=== PATIENT | female | born 1990 | race Caucasian/White ===

== ENCOUNTER → 2017-11-09 15:38 | Outpatient (CLI) | payer OTHER, SELFPAY ==
[2017-11-09 17:52] LABS: HCG,Quantitative 1846 mIU/mL
== END ==
PROVIDERS: PCP Nurse Practitioner Obstetrics & Gynecology; Visit Provider Nurse Practitioner Obstetrics & Gynecology
DX: Z32.00 Encounter for pregnancy test, result unknown (principal)
CPT/HCPCS: 36415; 84702

== ENCOUNTER → 2017-11-14 13:30 | Outpatient (CLI) | payer OTHER, SELFPAY ==
[2017-11-14 14:26] LABS: Basophils % 0.5 % (0.1-2.0); Eosinophils # 0.1 K/mm3 (0.0-0.4); Eosinophils % 0.7 % (0.1-12.0); Hematocrit 42.7 % (37.0-47.0); Hemoglobin 14.4 g/dL (12.2-16.2); Lymphocytes # 2.5 K/mm3 (0.7-4.5); Lymphocytes % 29.5 K/mm3 (10-50); Mean Corpuscular HGB Conc 33.7 g/dL (31.8-35.4); Mean Corpuscular Hemoglobin 31.5 pg (27.0-31.2); Mean Corpuscular Volume 93.6 fl (81-99); Mean Platelet Volume 8.1 fl (7.4-10.4); Monocytes # 0.3 K/mm3 (0.1-1.0); Monocytes % 3.6 % (1.7-9.3); Neutrophils # 5.6 K/mm3 (1.8-7.8); Neutrophils % 65.7 % (37.0-80.0); Platelet Count 222 K/mm3 (142-424); Red Blood Count 4.56 M/mm3 (4.20-5.40); Red Cell Distribution Width 11.7 % (11.5-17.5); White Blood Count 8.5 K/mm3 (4.8-10.8)
[2017-11-16 16:51] LABS: HIV Screen 4th Generation wRfx Non Reactive (Non Reactive); Hepatitis B Surface Antigen Negative (Negative); Rapid Plasma Reagin Ab Titer Non Reactive (NonRea<1:1); Rubella Antibodies, IgG 1.47 index (Immune >0.99)
[2017-11-16 16:52] LABS: Hepatitis C Antibody <0.1 s/co ratio (0.0-0.9)
== END ==
PROVIDERS: PCP Nurse Practitioner Obstetrics & Gynecology; Visit Provider Nurse Practitioner Obstetrics & Gynecology
DX: Z34.90 Encounter for supervision of normal pregnancy, unspecified, unspecified trimester (principal)
CPT/HCPCS: 36415; 85025; 86592; 86703; 86762; 86850; 87340; 87380; G0432

== ENCOUNTER → 2017-11-23 08:51 | Outpatient (CLI) | payer OTHER, SELFPAY ==
--- NOTE | 2017-11-23 08:54 | US_ITS ---
US OB transvaginal HISTORY: ITS.REASON: US OB Dates ORDERING PHYSICIAN: Mickey Barragan MD PATIENT AGE: 27 years COMPARISON: None FINDINGS: An intrauterine gestational sac is present with a pole with a crown-rump length of 0.76cm correlating to gestational age of 7w0d. heart tones are present with an FHR of 154 bpm's. Yolk sac is noted. . Adnexa: 1.5 cm right corpus luteum cyst. IMPRESSION: Live intrauterine gestation at 7 weeks 0 days as described above. Estimated due date by Ultrasound is 07/12/2018
== END ==
PROVIDERS: PCP Nurse Practitioner Obstetrics & Gynecology; Visit Provider Nurse Practitioner Obstetrics & Gynecology
DX: O26.841 Uterine size-date discrepancy, first trimester (principal)
CPT/HCPCS: 76817

== ENCOUNTER → 2018-02-27 08:24 | Outpatient (CLI) | payer OTHER, SELFPAY ==
--- NOTE | 2018-02-27 08:26 | US_ITS ---
US OB /maternal detail: INDICATION: ITS.REASON: US OB Complete ORDERING PHYSICIAN: Mickey Barragan MD PATIENT AGE: 28 years TECHNIQUE: ultrasound transabdominal scanning. COMPARISON: No previous relevant studies. FINDINGS: Single viable intrauterine gestation. Cephalic position. Placenta: Posterior placenta grade 1. There is average amount fluid. The cervix appears satisfactory. Closed and measuring 3.5 cm in length. Complete survey performed and was unremarkable on the submitted images as in PACS. No discrete anomalies identified on survey imaging by technologist. Active fetus. Three-vessel cord with satisfactory umbilical cord insertion. 4- chamber heart noted. Survey of brain & ventricles unremarkable. Face and neck survey unremarkable. Diaphragm and chest views unremarkable. Abdomen: Both kidneys noted and unremarkable. Stomach noted and satisfactory. Spine: Survey of the spine satisfactory with no anomalies identified nor imaged. Both arms and legs noted. Amniotic Fluid: Adequate. Maternal adnexa: No significant findings. Measurements: Average ultrasound age 20w2d. Gestational Age 20w5d. Estimated due date by ultrasound age 0507/15/2018. Estimated weight 349 grams. BPD = 20w2d OFD = 20w4d HC = 19w5d AC = 20w4d FL = 20w3d Growth Percentile= 28% Heart Rate = 152 Cerebellum = 20w6d Humerus = 21w1d1.11 (1,09-1.26) HC/AC is (1.09-1.26). CI is 78%(70-86%). FL/BPD is 71%. FL/AC is 22%. IMPRESSION: There is a single live fetus which is in cephalic presentation. Average ultrasound age is 20 weeks and 2 days. Fetus is active with no obvious anomalies. All parameters correlate. Posterior grade 1 placenta. Please see above for detailed description
== END ==
PROVIDERS: PCP Nurse Practitioner Obstetrics & Gynecology; Visit Provider Nurse Practitioner Obstetrics & Gynecology
DX: Z36.0 Encounter for antenatal screening for chromosomal anomalies (principal)
CPT/HCPCS: 76811

== ENCOUNTER → 2018-04-10 09:23 | Outpatient (CLI) | payer OTHER, SELFPAY ==
[2018-04-10 09:52] LABS: Glucose,Fasting 80 mg/dL (60-105)
[2018-04-10 11:13] LABS: Glucose 1 Hour 106 mg/dL (74-106)
== END ==
PROVIDERS: Visit Provider Nurse Practitioner Obstetrics & Gynecology
DX: Z34.90 Encounter for supervision of normal pregnancy, unspecified, unspecified trimester (principal)
CPT/HCPCS: 36415; 82951

== ENCOUNTER → 2018-06-13 09:56 | Outpatient (CLI) | payer OTHER, SELFPAY ==
--- NOTE | 2018-06-13 09:57 | US_ITS ---
US OB BPP w/Fet-Mat S/D: Indication: ITS.REASON: US OB- BPP Growth- LGA ORDERING PHYSICIAN: Mickey Barragan MD PATIENT AGE: 28 years FINDINGS: The following parameters are obtained: Average ultrasound age is 35w5d. Estimated due date by ultrasound is 07/13/2018. Estimated weight is 2858 grams, 69th percentile BPD: 34w5d OFD: 37w6d HC: 35w3d AC: 37w0d FL: 35w5d heart rate: 138 bpm. HC/AC: 0.96 (0.93-1.11) Cephalic index: 76% (70-86%) FL/BPD: 81% (71-87%) FL/AC: 21% (20-24%) Amniotic fluid index: 11 cm Qualitative AFV: 2 breathing movements: 2 Gross body movements: 2 Tone: 2 Biophysical profile score: 8/8 Doppler evaluation of the umbilical artery: SD ratio: 2.4 Resistive index: 0.58 No obvious anomalies evident. Placenta: Posterior and grade 2 Cervix: Appears closed and measures 3 cm IMPRESSION: There is a live intrauterine gestation with an average ultrasound age of 35 weeks and 5 days. Estimated weight is 2858 g which is 69th percentile. Placenta is posterior and grade 2 Biophysical profile is 8 of 8 Unremarkable umbilical artery evaluation
== END ==
PROVIDERS: PCP Nurse Practitioner Obstetrics & Gynecology; Visit Provider Nurse Practitioner Obstetrics & Gynecology
DX: O36.60X0 Maternal care for excessive fetal growth, unspecified trimester, not applicable or unspecified (principal)
CPT/HCPCS: 76819

== ENCOUNTER → 2018-06-15 16:49 | Outpatient (CLI) | payer OTHER, SELFPAY | PROVIDERS: Visit Provider Nurse Practitioner Obstetrics & Gynecology | DX: Z34.90 Encounter for supervision of normal pregnancy, unspecified, unspecified trimester (principal) | CPT/HCPCS: 86403 ==

== ENCOUNTER 2018-06-29 09:16 | Outpatient (CLI) | payer OTHER, SELFPAY ==
[2018-06-29 09:31] VITALS: BP 136/86; RESP 20; TEMP 36.7; O2SAT 100; BMI 35.3
[2018-06-29 09:52] LABS: Microscopic, Urine URINE MICROSCOPIC (MICROSCOPIC)
[2018-06-29 09:56] LABS: Basophils % 0.5 % (0.1-2.0); Eosinophils % 0.3 % (0.1-12.0); Lymphocytes # 1.3 K/mm3 (0.7-4.5); Lymphocytes % 18.3 % (10-50); Mean Corpuscular HGB Conc 34.2 g/dL (31.8-35.4); Mean Corpuscular Hemoglobin 32.1 pg (27.0-31.2); Mean Corpuscular Volume 93.7 fl (81-99); Monocytes # 0.3 K/mm3 (0.1-1.0); Monocytes % 3.7 % (1.7-9.3); Neutrophils # 5.4 K/mm3 (1.8-7.8); Neutrophils % 77.2 % (37.0-80.0); Platelet Count 177 K/mm3 (142-424); Red Blood Count 4.38 M/mm3 (4.20-5.40); Red Cell Distribution Width 12.9 % (11.5-17.5)
[2018-06-29 10:07] LABS: Alanine Aminotransferase 28 U/L (12-78); Anion Gap 13.8 mEq/L (5-15); Aspartate Amino Transferase 16 U/L (15-37); Blood Urea Nitrogen 10 mg/dL (7-18); Calcium 8.4 mg/dL (8.5-10.1); Carbon Dioxide 22 mmol/L (21.0-32.0); Chloride 102 mmol/L (98-107); Creatinine Clearance Estimated 178 mL/min (50-200); Estimated Glomerular Filt Rate 100 ml/min (>60); GFR (African American) 121 ML/MIN (>60); Glucose 79 mg/dL (74-106); Potassium 3.8 mmoL/L (3.5-5.1); Sodium 134 mmol/L (136-145); Uric Acid 4.3 mg/dL (2.6-7.2)
[2018-06-29 10:10] LABS: Fibrinogen 471 mg/dL (204-500); INR 0.86 (0.9-1.1); Prothrombin Time 8.9 seconds (9.4-11.8)
[2018-06-29 10:16] LABS: D-Dimer 737 ng/mL (0-400)
[2018-06-29 10:35] LABS: Appearance,Urine CLEAR (Clear); Bilirubin,Urine Negative (Negative); Blood, Urine 3+ (Negative); Color,Urine STRAW (Yellow); Glucose,Urine (UA) Negative (Negative); Ketones,Urine Negative (Negative); Leukocyte Esterase,Urine 1+ (Negative); Nitrate,Urine Negative (Negative); Protein,Urine Negative (Negative); Specific Gravity, Urine <= 1.005 (1.005-1.030); Urobilinogen,Urine 0.2 EU/dl (0.2)
[2018-06-29 10:56] LABS: Bacteria,Urine 1+ /lpf
[2018-06-29 11:30] VITALS: BP 125/78
[2018-06-29 12:28] LABS: Amphetamine/Metha Screen,Urine Negative ng/mL (<1000); Barbiturates Screen,Urine Negative ng/mL (<200); Benzodiazepines Screen,Urine Negative ng/mL (<200); Cannabinoid Screen,Urine Negative ng/mL (<50); Cocaine Screen,Urine Negative ng/mL (<300); Methadone Screen,Urine Negative ng/mL (<300); Opiate Screen,Urine Negative ng/mL (<300); Phencyclidine Screen,Urine Negative ng/mL (<25)
== END 2018-06-29 12:00 | disposition home or self-care (01) ==
LOC: OBOUT 09:18 → OB 09:18
PROVIDERS: Visit Provider Nurse Practitioner Obstetrics & Gynecology
DX: O13.3 Gestational [pregnancy-induced] hypertension without significant proteinuria, third trimester (principal); Z3A.37 37 weeks gestation of pregnancy
CPT/HCPCS: 59025; 80048; 80305; 81001; 84450; 84460; 84550; 85025; 85378; 85384; 85610; 85730; 87086

== ENCOUNTER → 2018-07-01 12:55 | Outpatient (CLI) | payer OTHER, SELFPAY ==
[2018-07-01 13:17] LABS: Total Volume,Urine 3100 mL (600-1600)
[2018-07-01 13:26] LABS: Total Protein 24 Hour,Urine 229 mg/24 hr (40-90); Total Protein,Urine Random 7.4 mg/dL (0.0-11.9)
== END ==
PROVIDERS: Visit Provider Nurse Practitioner Obstetrics & Gynecology
DX: O13.9 Gestational [pregnancy-induced] hypertension without significant proteinuria, unspecified trimester (principal); Z3A.38 38 weeks gestation of pregnancy
CPT/HCPCS: 84155

== ENCOUNTER 2018-07-09 17:24 | Inpatient (IN) ==
[2018-07-09 18:33] LABS: Microscopic, Urine URINE MICROSCOPIC (MICROSCOPIC)
[2018-07-09 18:40] LABS: Basophils % 0.3 % (0.1-2.0); Eosinophils # 0.1 K/mm3 (0.0-0.4); Eosinophils % 0.7 % (0.1-12.0); Hematocrit 38.6 % (37.0-47.0); Hemoglobin 13.7 g/dL (12.2-16.2); Lymphocytes # 1.8 K/mm3 (0.7-4.5); Lymphocytes % 21.2 % (10-50); Mean Corpuscular HGB Conc 35.5 g/dL (31.8-35.4); Mean Corpuscular Hemoglobin 32.9 pg (27.0-31.2); Mean Corpuscular Volume 92.7 fl (81-99); Monocytes # 0.3 K/mm3 (0.1-1.0); Monocytes % 4.1 % (1.7-9.3); Neutrophils # 6.1 K/mm3 (1.8-7.8); Neutrophils % 73.7 % (37.0-80.0); Platelet Count 200 K/mm3 (142-424); Red Blood Count 4.16 M/mm3 (4.20-5.40); Red Cell Distribution Width 13.1 % (11.5-17.5); White Blood Count 8.3 K/mm3 (4.8-10.8)
[2018-07-09 19:19] LABS: Appearance,Urine CLEAR (Clear); Bilirubin,Urine Negative (Negative); Blood, Urine Negative (Negative); Color,Urine YELLOW (Yellow); Glucose,Urine (UA) Negative (Negative); Ketones,Urine Negative (Negative); Leukocyte Esterase,Urine 1+ (Negative); Protein,Urine Negative (Negative); Urobilinogen,Urine 0.2 EU/dl (0.2)
[2018-07-09 19:25] LABS: Amphetamine/Metha Screen,Urine Negative ng/mL (<1000); Barbiturates Screen,Urine Negative ng/mL (<200); Benzodiazepines Screen,Urine Negative ng/mL (<200); Cannabinoid Screen,Urine Negative ng/mL (<50); Cocaine Screen,Urine Negative ng/mL (<300); Methadone Screen,Urine Negative ng/mL (<300); Opiate Screen,Urine Negative ng/mL (<300); Phencyclidine Screen,Urine Negative ng/mL (<25)
--- NOTE | 2018-07-10 07:23 | Progress Note ---
Labor Note - Subjective: Date: 07/10/18 Time: 09:44 regular contraction - Objective: NST:: Reactive Contractions:: every 2-3 minutes Effacement:: 50% Station: -2 Membranes: intact Comment:: I ruptured her membranes and there was clear fluid. - Fetus: Monitoring?: Yes monitoring type:: External - Assessment: Labor progressing?: No Cephalopelvic disproportion?: No Patient Problems: All Active Problems (Acute) - Plan: Anesthesia for epidural?: No Continue to labor down?: Yes Plan for ?: No Continue to monitor?: Yes Start pushing?: No
--- NOTE | 2018-07-10 09:46 | Progress Note ---
Labor Note - Subjective: Date: 07/10/18 Time: 09:45 regular contraction - Objective: NST:: Reactive Contractions:: every 2-3 minutes Cervical Dilation:: 2 Effacement:: 50% Station: -2 Membranes: artificially ruptured Comment:: Clear fluid - Fetus: Monitoring?: Yes monitoring type:: External - Assessment: Labor progressing?: Yes Cephalopelvic disproportion?: No Patient Problems: All Active Problems (Updated 07/06/18 @ 08:27 by Mickey Barragan MD) (Acute) - Plan: Anesthesia for epidural?: No Continue to labor down?: Yes Plan for ?: No Continue to monitor?: Yes Start pushing?: No
--- NOTE | 2018-07-10 12:58 | Progress Note ---
Labor Note - Subjective: Date: 07/10/18 Time: 12:57 regular contraction - Objective: NST:: Reactive Contractions:: every 2-3 minutes Cervical Dilation:: 2 Effacement:: 50% Station: -3 Membranes: artificially ruptured - Fetus: Monitoring?: Yes monitoring type:: External - Assessment: Labor progressing?: No Cephalopelvic disproportion?: No Patient Problems: All Active Problems (Updated 07/06/18 @ 08:27 by Mickey Barragan MD) (Acute) - Plan: Anesthesia for epidural?: No Continue to labor down?: Yes Plan for ?: No Continue to monitor?: Yes Start pushing?: No Comment:: She really has not progressed much. We will continue with her oxytocin. The cervix is soft. The baby's head is still quite high. Ultrasound confirmed a cephalic presentation
--- NOTE | 2018-07-10 13:27 | Progress Note ---
Labor Note - Subjective: Date: 07/10/18 Time: 13:26 regular contraction - Objective: NST:: Reactive Contractions:: every 2-3 minutes Cervical Dilation:: 2-3 Effacement:: 50% Station: -3 Membranes: artificially ruptured - Fetus: Monitoring?: Yes monitoring type:: Internal and External Comment:: I inserted an IUPC - Assessment: Labor progressing?: No Cephalopelvic disproportion?: No Patient Problems: All Active Problems (Updated 07/06/18 @ 08:27 by Mickey Barragan MD) (Acute) - Plan: Anesthesia for epidural?: No Continue to labor down?: Yes Plan for ?: Yes Continue to monitor?: Yes Start pushing?: No Comment:: She has not really change her cervix since this morning. The baby's head is still quite high. I did insert an IUPC. The nonstress test is reactive. We will give her some more time and see if the baby's head comes down.
--- NOTE | 2018-07-10 16:56 | Progress Note ---
Internal Medicine - PN: Subj *Date: 07/10/18 *Time: 16:53 Interval history: She is has her epidural and her cervix remains 2 cm with the presenting part very high. She is 50% effaced. She has an IUPC and has been having regular contractions all day. Exam Vital signs and Labs for Last 24 Hours: Temp Pulse Resp BP Pulse Ox 98.0 F 84 20 128/85 100 07/09/18 17:30 07/09/18 17:30 07/09/18 17:30 07/09/18 17:30 07/09/18 17:30 Laboratory Results - last 24 hr 07/09/18 18:00: Urine Color Yellow, Urine Appearance Clear, Urine pH 7.0, Ur Specific [place] 1.010, Urine Protein Negative, Urine Glucose (UA) Negative, Urine Ketones Negative, Urine Blood Negative, Urine Nitrate Negative, Urine Bilirubin Negative, Urine Urobilinogen 0.2, Ur Leukocyte Esterase 1+ A, Urine WBC 5-10, Ur Squamous Epith Cells 10-20 07/09/18 18:00: Urine Opiates Screen Negative, Urine Methadone Screen Negative, Ur Barbituates Screen Negative, Ur Phencyclidine Scrn Negative, Ur Amphetamines Screen Negative, U Benzodiazepines Scrn Negative, Urine Cocaine Screen Negative, U Marijuana (THC) Screen Negative 07/09/18 18:00: Blood Type A Positive, Antibody Screen Negative 07/09/18 18:00: WBC 8.3, RBC 4.16 L, Hgb 13.7, Hct 38.6, MCV 92.7, MCH 32.9 H, MCHC 35.5 H, RDW 13.1, Plt Count 200, Neut % (Auto) 73.7, Lymph % (Auto) 21.2, [place] % (Auto) 4.1, Eos % (Auto) 0.7, Baso % (Auto) 0.3, Neut # (Auto) 6.1, Lymph # (Auto) 1.8, [place] # (Auto) 0.3, Eos # (Auto) 0.1, Baso # (Auto) 0.0 I & O for Last 24 hours: Intake & Output 07/08/18 07/09/18 07/10/18 07/11/18 11:59 11:59 11:59 11:59 Weight 199 lb Microbiology Reports for the Last 24 Hours: Microbiology 07/09/18 18:00 Urine,Clean Catch Urine Culture - Preliminary - Constitutional no acute distress Assessment and Plan (1) induced hypertension Current visit: Yes Status: Acute Category: Medical Code(s): O13.9 - Gestational [-induced] hypertension without significant proteinuria, unspecified trimester (2) pelvic disproportion antepartum Current visit: Yes Status: Acute Category: Medical Code(s): O33.9 - Maternal care for disproportion, unspecified (3) High head at term Current visit: Yes Status: Acute Category: Medical Code(s): O32.4XX0 - Maternal care for high head at term, not applicable or unspecified - Assessment and plan all Dx Assessment and Plan for all problems:: She really has not progressed in the head is still very high. I think it may be asynclitic. She does have some thin meconium as well. We will go ahead and deliver her by section. I discussed the risks of surgery that includes bleeding, infection, injury to the bowel and bladder. We discussed the rare risk of DVT. We discussed the need to stay in hospital for an extra day. All questions were answered and consents were signed.
--- NOTE | 2018-07-10 17:41 | Operative Note ---
Date of procedure: 07/10/18 Pre-op Diagnosis:: Term , mild -induced hypertension, pelvic disproportion, meconium Post-op Diagnosis:: Term , mild -induced hypertension, pelvic disproportion, meconium, uterine atony Procedure performed:: Primary lower segment transverse section and B. Peres suture Surgeon:: Mickey Barragan MD Convenience Store Clerk(s):: Dr. Hurd CENTER DIRECTOR LEAD TEACHER:: Torrey Allen Anesthesia: epidural Estimated blood loss (mL): 600 Clinical Note:: She is a 28-year-old 1 para 0 at 39+ weeks gestational age. She was seen last week and had increased blood pressure. We started her on labetalol 200 mg twice daily and we also did a 24-hour urine. Her 24-hour urine was negative for excessive protein. Since she was 39 weeks gestational age we elected to induce her labor at term. She was started on Cervidil on the evening of the and then had her membranes ruptured and oxytocin started the morning of July 10, 2018 and really failed to progress beyond 2 cm. As result of that pelvic disproportion was diagnosed and she was taken for a primary lower segment transverse section. Operative findings:: She delivered a liveborn female child at 5:11 PM in the evening of July 10, 2018. The baby had Apgars of 9 at 1 minute and 9 at 5 minutes. The baby seemed to be asynclitic with the It on the side of the baby's head. There was thin meconium. Ovaries and tubes appeared normal. The uterus itself was boggy postdelivery and I elected to place a B. Peres suture. Operative note:: She was taken to the operating room where epidural anesthesia was found be adequate. She was prepped and draped in normal sterile fashion in the supine position with a leftward tilt. A Valdez catheter was in the bladder. A Pfannenstiel skin incision was made with knife then carried through to the underlying layer of fascia with cautery. The fascia was opened in the midline with cautery and extended laterally using Lynn scissors. Anish clamps were applied to the superior aspect of the fascial incision which was tented up and the underlying rectus muscles dissected off using cautery. The Anish clamps were then applied to the inferior aspect of the fascial incision which in a similar fashion was tented up and the underlying rectus muscles dissected off using cautery. The rectus muscles were then in the midline, the peritoneum identified, and entered sharply with Metzenbaum scissors. This incision was then extended superiorly and inferiorly with cautery. We had good visualization of the bladder inferiorly. The bladder peritoneum was then opened in the midline and extended laterally using Metzenbaum scissors. A bladder flap was created digitally. Transverse incision was made through the uterine muscle to the amnion. This incision was then extended laterally using fingers traction. The amnion was entered sharply with knife. There was clear amniotic fluid. The 's head was then delivered atraumatically. This was followed by the anterior shoulder and the rest of the 's body atraumatically. The oropharynx and nasopharynx were DeLee suctioned. The infant was then handed off to Dr. Paniagua who assigned Apgars of 9 at 1 minute and 9 at 5 minutes. We then obtained cord blood as well as cord pH. The pH was 7.33. Using gentle traction on the cord and countertraction on the fundus I was able to easily deliver the placenta intact. It had a normal three-vessel cord. The uterus was then cleared of clots and debris . The uterine incision was then closed using running 0 Vicryl suture in a locked fashion. A second layer of the same suture was used to imbricate the first layer. The bladder peritoneum was then closed using running 2-0 Vicryl suture in a locked fashion. At this time it was noted that the uterus was still quite boggy so I elected to place a B. Peres suture. Using #1 Vicryl suture I took a bite anteriorly and then passed the suture over posteriorly. I then took 2 bites posteriorly and passed the suture over anteriorly again and took another bite anteriorly. The suture was cinched down and tied. The gutters and cul-de-sac were then cleared of clots and debris . Once again hemostasis was assured. The uterus was then returned to the abdominal cavity. The peritoneum was grasped with Mikaela clamps and closed using running 2-0 Vicryl suture. The rectus muscles were then reapproximated using running 0 Vicryl suture. The fascia was closed using running #1 Vicryl suture. The subcutaneous tissues were then irrigated with warm water followed by closure Chris's fascia using running 2-0 Monocryl suture. The skin was closed with ginny. I then cleaned the skin with Hibiclens. Sterile dressings were applied. She tolerated the procedure well and was taken to the recovery room in excellent condition. All sponges minute and needle counts were correct. Estimate a blood loss was approximately 600 mL. Condition: stable Disposition: PACU Specimens:: Products of conception Complications:: None
--- NOTE | 2018-07-10 17:46 | Progress Note ---
[facility] Anesthesia Checklist - Patient Identification Patient Identification: Arm Band - Structural Data Admitted From: Home Planned Operative Procedure/s: labor epidural Consent for Planned Operative Procedure(s) Verified: Yes Verified Documents: Surgical Consent, History and Physical - NPO Status Verified Time NPO: 00:00 - Additional verifications Anesthesia Reactions: No - Airway Assessment C-Spine Mobility Assessed: Yes TMJ Mobility Assessed: Yes Dentition: Good Dentition - Neurological Assessment Level of Consciousness: Awake, Alert - Anesthesia Plan Anesthesia Risk discussed: Yes Anesthesia Plan: Verified ASA Class: II Anesthesia Type: Epidural [facility] History I have reviewed the patient's past medical history: Yes Medical History: Denies:: Cancer, Diabetes Mellitus Type 1, Diabetes Mellitus Type 2, MRSA *Have you ever received a pneumonia vaccine?: No *Have you received a flu vaccine this season?: Yes Other Surgeries: Yes: No Previous Surgery. No: Amputation: No Fractures: No - *Social History Educational Level: Completed College Smoking Status: Never smoker Alcohol Intake: never Substance Use Type: denies use *Occupational Status:: employed Housing: house Household Members: spouse *Travel in the last 8 weeks: None - Psychiatric History Expresses thoughts of harming self/others: None Suicide Plan Description: No Plan Family Hx:: No significant family history Para: 0
--- NOTE | 2018-07-10 17:46 | Progress Note ---
[facility] Anesthesia Record Part I Intake, IV Amount: 2,000 Estimated blood loss (mL): 600 Urine output (mL): 900 Blood Pressure: 117/79 SaO2: 96 Pulse Rate: 79 Respiratory Rate: 16 Temperature: 98.6 F Patient is:: Drowsy, Stable Stable to PACU at:: 17:40
--- NOTE | 2018-07-10 17:47 | Progress Note ---
[facility] Anesthesia Record Part II Discharge Time: 18:10 Destination: Obstetric PACU nurse assessment reviewed?: Yes Patient Condition:: Good Anesthesia Complications:: None Swallowing reflex intact?: Yes Cyanosis?: No
[2018-07-11 07:21] LABS: Basophils % 0.1 % (0.1-2.0); Eosinophils % 0.1 % (0.1-12.0); Hematocrit 35.5 % (37.0-47.0); Hemoglobin 11.8 g/dL (12.2-16.2); Lymphocytes # 0.9 K/mm3 (0.7-4.5); Lymphocytes % 8.1 % (10-50); Mean Corpuscular HGB Conc 33.3 g/dL (31.8-35.4); Mean Corpuscular Hemoglobin 31.6 pg (27.0-31.2); Mean Corpuscular Volume 94.8 fl (81-99); Mean Platelet Volume 8.7 fl (7.4-10.4); Monocytes # 0.4 K/mm3 (0.1-1.0); Monocytes % 3.2 % (1.7-9.3); Neutrophils # 10.1 K/mm3 (1.8-7.8); Neutrophils % 88.6 % (37.0-80.0); Platelet Count 167 K/mm3 (142-424); Red Blood Count 3.74 M/mm3 (4.20-5.40); Red Cell Distribution Width 13.4 % (11.5-17.5); White Blood Count 11.4 K/mm3 (4.8-10.8)
--- NOTE | 2018-07-11 09:06 | Progress Note ---
Internal Medicine - PN: Subj *Date: 07/11/18 *Time: 09:05 Interval history: She is doing very well this morning. She is eating and drinking and ambulating. She is breast-feeding. Her lochia is normal. Her pain is reasonably well controlled. Exam Vital signs and Labs for Last 24 Hours: Temp Pulse Resp BP Pulse Ox 98.2 F 85 16 134/78 97 07/10/18 20:38 07/10/18 20:38 07/10/18 20:38 07/10/18 20:38 07/10/18 20:38 Laboratory Results - last 24 hr 07/10/18 17:15: Cord ABG pH 7.33 L 07/11/18 06:45: WBC 11.4 H D, RBC 3.74 L, Hgb 11.8 L, Hct 35.5 L, MCV 94.8, MCH 31.6 H, MCHC 33.3, RDW 13.4, Plt Count 167, MPV 8.7, Neut % (Auto) 88.6 H, Lymph % (Auto) 8.1 L, [place] % (Auto) 3.2, Eos % (Auto) 0.1, Baso % (Auto) 0.1, Neut # (Auto) 10.1 H, Lymph # (Auto) 0.9, [place] # (Auto) 0.4, Eos # (Auto) 0.0, Baso # (Auto) 0.0, Total Counted Cancelled, Neutrophils % (Manual) Cancelled, Band Neutrophils % Cancelled, Lymphocytes % (Manual) Cancelled, Atypical Lymphs % Cancelled, Monocytes % (Manual) Cancelled, Eosinophils % (Manual) Cancelled, Basophils % (Manual) Cancelled, Metamyelocytes % Cancelled, Myelocytes % Cancelled, Promyelocytes % Cancelled, Blast Cells % Cancelled, Nucleated RBCs Cancelled, Differential Comment Cancelled, Hypersegmented Neuts Cancelled, Toxic Granulation Cancelled, Toxic Vacuolation Cancelled, Dohle Bodies Cancelled, Shelley Rods Cancelled, Platelet Estimate Cancelled, Giant Platelets Cancelled, RBC Morp hology Cancelled, Polychromasia Cancelled, Hypochromasia Cancelled, Poikilocytosis Cancelled, Basophilic Stippling Cancelled, Anisocytosis Cancelled, Microcytosis Cancelled, Macrocytosis Cancelled, Spherocytes Cancelled, Pappenheimer Bodies Cancelled, Sickle Cells Cancelled, Target Cells Cancelled, Tear Drop Cells Cancelled, Ovalocytes Cancelled, Stomatocytes Cancelled, Helmet Cells Cancelled, Camacho-Reasnor Bodies Cancelled, [place] Rings Cancelled, [place] Cells Cancelled, Acanthocytes (Spur) Cancelled, Rouleaux Cancelled, Schistocytes Cancelled I & O for Last 24 hours: Intake & Output 07/08/18 07/09/18 07/10/18 07/11/18 11:59 11:59 11:59 11:59 Intake Total 100 / 100 1999 Output Total 75 / 75 3200 / 3200 Balance 25 / -1200 / -1200 Weight 199 lb Microbiology Reports for the Last 24 Hours: Microbiology 07/09/18 18:00 Urine,Clean Catch Urine Culture - Preliminary - Constitutional no acute distress Assessment and Plan (1) induced hypertension Current visit: Yes Status: Acute Category: Medical Code(s): O13.9 - Gestational [-induced] hypertension without significant proteinuria, unspecified trimester (2) pelvic disproportion antepartum Current visit: Yes Status: Acute Category: Medical Code(s): O33.9 - Maternal care for disproportion, unspecified (3) High head at term Current visit: Yes Status: Acute Category: Medical Code(s): O32.4XX0 - Maternal care for high head at term, not applicable or unspecified - Assessment and plan all Dx Assessment and Plan for all problems:: She is doing very well this morning. We will plan to send her home in 48 hours.
--- NOTE | 2018-07-11 13:29 | Pharmacy Consult Notes ---
[facility] Pharmacy VTE Monitoring - Patient Demographics Admission date: 07/09/18 Report Date: 07/11/18 Time: 13:29 Allergies/Adverse Reactions: Patient Allergies No Known Allergies Allergy (Verified 07/06/18 08:13) Height: 1.68 m Weight: 90.265 kg Patient Problems: Current Active Problems (Updated 07/10/18 @ 16:56 by Mickey Barragan MD) induced hypertension (Acute) pelvic disproportion antepartum (Acute) High head at term (Acute) - VTE Risk Labs: VTE Related Lab Results Hgb 11.8 g/dL (12.2-16.2) L 07/11/18 06:45 Hct 35.5 % (37.0-47.0) L 07/11/18 06:45 Plt Count 167 K/mm3 (142-424) 07/11/18 06:45 - Prophylaxis VTE Prophylaxis Ordered?: Yes Types of VTE Prophylaxis: IPCS Thigh High Location of Applied Device: Bilateral Lower Extremeties
[2018-07-11 20:22] VITALS: BP 132/69
--- NOTE | 2018-07-12 08:45 | Discharge Summary ---
General - General Admission date:: 07/09/18 Discharge date: 07/12/18 HPI HPI: She is a 28-year-old 1 now para 1 who was 39 weeks gestational age. She had increased blood pressure and was started on labetalol. She had a 24-hour urine that was negative for excessive proteinuria. Since she with 39 weeks we elected to induce her labor at term. Hospital Course Hospital Course: She had Cervidil placed on the evening of admission and the following morning had her membranes ruptured. She failed to progress under labor epidural beyond 2 to 3 cm. The baby's head was very high. There was thin meconium and as result of her lack of progress, high head and meconium we elected to perform a primary lower segment transverse section. She delivered a liveborn female child at 5:11 PM in the evening of July 10, 2018. The baby weighed 7 pounds 7 ounces and was 20 inches long. She had Apgars of 9 at 1 minute and 9 at 5 minutes. pH was 7.33. She has done well and has remained afebrile throughout her hospitalization. She is eating and drinking and ambulating. She is breast- feeding. Her lochia is normal. She A+ blood, she is rubella immune and was group A streptococcus positive. She did receive IV antibiotics while in labor. She is discharged home to follow-up with me in approximately 2 weeks time. She will continue with her labetalol 200 mg twice daily. She will take ibuprofen and Tylenol for pain. She was given a prescription for Percocet 5/325 number 20 tablets to take for pain as needed. She was given the usual instructions with respect to limiting her activity, driving and sexual activity. Her condition on discharge is stable and improved. Rhogam Administration: Not Indicated Objective Vital signs: Temp Pulse Resp BP Pulse Ox 98.2 F 87 18 132/69 97 07/11/18 20:02 07/11/18 20:02 07/11/18 20:02 07/11/18 20:02 07/11/18 20:02 no acute distress Results Labs on day of discharge: Preliminary micro results at discharge 07/09/18 18:00 Urine Culture - Preliminary Urine,Clean Catch DS: Diagnosis - Discharge Diagnosis (1) induced hypertension Status: Acute (2) pelvic disproportion antepartum Status: Acute (3) High head at term Status: Acute (4) Uterine atony, , without hemorrhage Status: Acute (5) Meconium in amniotic fluid affecting management of mother Status: Acute Discharge Plan - Patient Discharge Instructions ACTIVITY: No heavy lifting DIET: continue same diet - Follow up Plan Disposition: Home, Self-Prison Medications: Home Medications Medication Instructions Recorded Confirmed Type 1 tab PO DAILY 02/02/18 07/10/18 History vitamin,calcium,swlbziyx-nknj-cbket acid tablet Labetalol HCl 200 mg PO BID 07/10/18 07/10/18 History Oxycodone HCl/Acetaminophen 1 - 2 tab PO Q4-6H PRN #20 tab 07/12/18 Rx [Percocet 5/325mg tablet] Prescriptions/Medication Reconciliation: New Oxycodone HCl/Acetaminophen [Percocet 5/325mg tablet] 1 - 2 tab PO Q4-6H PRN #20 tab PRN Reason: Severe Pain Continued vitamin,calcium,iawukywa-fvvk-tsyoo acid tablet 1 tab PO DAILY Labetalol HCl 200 mg PO BID
== END 2018-07-12 14:00 | disposition home or self-care (01) | DRG 788 ==
LOC: OB 17:24
PROVIDERS: ADMIT Nurse Practitioner Obstetrics & Gynecology; ATTEND Nurse Practitioner Obstetrics & Gynecology
CPT/HCPCS: 36415; 59025; 76811; 76819; 76820; 80305; 81001; 82800; 85025; 86850; 87086; 87088; 87186; 94761; C1758; J0290; J2405

== ENCOUNTER 2019-11-13 15:57 | Emergency (ER) | payer OTHER, SELFPAY ==
[2019-11-13 16:08] VITALS: BP 150/97; PULSE 69; RESP 18; TEMP 36.7; O2SAT 99
--- NOTE | 2019-11-13 16:08 | XR_ITS ---
PROCEDURE: XR ANKLE LT MIN 3V CLINICAL INDICATION: twisted ankle on 11/09 Pain and swelling COMPARISON: No exams were available for comparison FINDINGS: No fracture or dislocation. Mild soft tissue swelling at the lateral malleolar region. The talar dome has an unremarkable appearance and the ankle mortise is preserved. IMPRESSION: Soft tissue swelling otherwise negative Dictated by: Yunior Montiel MD 11/13/2019 16:47 Yunior Montiel MD in [place] 11/13/2019 16:47
--- NOTE | 2019-11-13 16:14 | HMH.EDUTC ---
[facility] [place] Clinical Impression: Ankle sprain Qualifiers: Encounter type: initial encounter Involved ligament of ankle: unspecified ligament Laterality: left Qualified Code(s): S93.402A - Sprain of unspecified ligament of left ankle, initial encounter Disposition: Home, Self-Care Condition on Discharge: Good Instructions: How To Perform RICE (Rest, Ice, Compress, Elevate), How to Use a Walking Boot Additional Instructions: *weight bearing as tolerated *RICE, Rest the extremity, Ice 15-20 minutes 3-4 times daily, Compress- wear the colten wrap as discussed as much as possible to help reduce swelling and pain, Elevate the extremity when at rest *Colten wrap is for support and help control swelling, use it except in the shower. Be sure that is not to tight but not to loose either *Elevate when resting *Ibuprofen every 6-8 hours as needed for pain an inflammation. If need something more can take Tylenol in between doses of Ibuprofen to help Immediately follow up with your family doctor for new or worsening of symptoms, or no noticeable improvement over the next 3-5 days Follow up with Dr Weiss for further evaluation call office and make appointment Return if needed Straight to ER if any life threatening symptoms Referrals: PCP,No [Primary Care Provider] - Tenisha Weiss DPM [Staff Physician] - Time of Disposition: 16:46 Medical Decision Making - Rex Inquiry Pt receiving controlled substance: Fracnia Goodman was queried for this patient: No Vital Signs: 11/13/19 16:08 11/13/19 16:48 Temperature 98.0 F 98.0 F Temperature Source Oral Oral Pulse Rate 69 Pulse Rate [Radial] 69 Respiratory Rate 18 18 Blood Pressure 150/97 H Blood Pressure [Right Arm] 150/97 H Blood Pressure Mean [Right Arm] 114 Blood Pressure Source Automatic Cuff Blood Pressure Source [Right Arm] Automatic Cuff Blood Pressure Position Sitting Blood Pressure Position [Right Arm] Sitting 02 Sat by Pulse Oximetry 99 Oxygen Delivery Method Room Air Room Air - Lab Data Lab Results 11/13/19 16:32: [facility] Negative Orders (Tests/Meds): ORDERS Category Date Time Status Ankle XR - Left minimum 3 Views [XR ankle LT min 3V] Exams 11/13/19 16:08 Taken Stat - Radiology Data #1 Image(s): Ankle Image Reviewed: Yes I reviewed the patient's radiology image w/the ED provider Preliminary Findings: No Fracture Seen [facility] [place] - General Stated complaint: AO 0919 @ Home Injured L ankle Time Seen by Provider: 11/13/19 16:14 Mode of Arrival: Ambulatory Source of Information: Patient Limitations: No Limitations Description of Symptoms (Recalled from Triage Doc. by RN): twisted left ankle on tuesday. HEENT Symptoms (Recalled from RN notes): No Resp Symptoms (Recalled from RN notes): No Skin Symptoms (Recalled from RN notes): No MS Symptoms (Recalled from RN notes): Yes Functional Status (Recalled from RN notes): wnl - History of Present Illness Provider Complaint: Patient states that she was walking in a parking garage on Tuesday when she twisted her left ankle after she stepped in a break in the black top States that ever since she has been having bruising and swelling in her left ankle States that she is able to walk on it now but swelling and bruising is worse so she came in to get it checked - Related Data Previous Rx's Medication Instructions Recorded Metoclopramide HCl [Reglan 10mg 10 mg PO QID PRN #15 tab 04/09/19 Tab] norethindrone (contraceptive) 0.35 0.35 mg PO DAILY #28 tab 07/12/19 mg tablet Allergies Allergy/AdvReac Type Severity Reaction Status Date / Time No Known Allergies Allergy Verified 04/04/19 10:14 - Worker's Comp Is this a Worker's Comp case?: No [facility] History - Hepatitis A Screen Drug use history?: No High risk sexual behaviors?: No History of sexually transmitted infection?: No Currently employed?: No Childcare worker?: No Do you have indoor plumbing?: Yes
[2019-11-13 16:33] LABS: UTC Pregnancy Test, Urine Negative (Negative)
[2019-11-13 16:48] VITALS: BP 150/97; PULSE 69; RESP 18; TEMP 36.7; O2SAT 99
== END 2019-11-13 16:51 | disposition home or self-care (01) ==
PROVIDERS: Emergency Provider Nurse Practitioner
DX: S93.402A Sprain of unspecified ligament of left ankle, initial encounter (principal); X50.1XXA Overexertion from prolonged static or awkward postures, initial encounter; Y92.014 Private driveway to single-family (private) house as the place of occurrence of the external cause
CPT/HCPCS: 29515; 73610; 81025; 99202

== ENCOUNTER → 2019-12-25 07:35 | Outpatient (CLI) | payer OTHER, SELFPAY ==
[2019-12-25 09:13] LABS: HCG,Quantitative 1599 mIU/ml (0-5.42)
== END ==
PROVIDERS: Visit Provider Nurse Practitioner Obstetrics & Gynecology
DX: Z32.00 Encounter for pregnancy test, result unknown (principal)
CPT/HCPCS: 36415; 84702

== ENCOUNTER → 2020-01-14 16:11 | Outpatient (CLI) | payer OTHER, SELFPAY ==
[2020-01-14 17:16] LABS: Basophils % 0.4 % (0.1-2.0); Eosinophils % 0.4 % (0.1-12.0); Hematocrit 43.3 % (37.0-47.0); Hemoglobin 14.8 g/dL (12.2-16.2); Lymphocytes # 2.3 K/mm3 (0.7-4.5); Lymphocytes % 24.6 % (10-50); Mean Corpuscular HGB Conc 34.3 g/dL (31.8-35.4); Mean Corpuscular Volume 93.4 fl (81-99); Mean Platelet Volume 8.9 fl (7.4-10.4); Monocytes # 0.4 K/mm3 (0.1-1.0); Monocytes % 4.4 % (1.7-9.3); Neutrophils # 6.4 K/mm3 (1.8-7.8); Neutrophils % 70.2 % (37.0-80.0); Platelet Count 240 K/mm3 (142-424); Red Blood Count 4.63 M/mm3 (4.20-5.40); Red Cell Distribution Width 12.8 % (11.5-17.5); White Blood Count 9.2 K/mm3 (4.8-10.8)
[2020-01-14 17:42] LABS: Anion Gap 15.3 mEq/L (5-15); Blood Urea Nitrogen 11 mg/dl (7-17); Calcium 9.7 mg/dl (8.4-10.2); Carbon Dioxide 28 mmol/L (22.0-30.0); Chloride 99 mmol/L (98-107); Estimated Glomerular Filt Rate 100 ml/min (>60); GFR (African American) 121 ML/MIN (>60); Glucose 108 mg/dl (74-100); Potassium 4.3 mmoL/L (3.5-5.1); Sodium 138 mmol/L (136-145)
[2020-01-14 17:54] LABS: Coronavirus 19 IgG Antibody Negative (Negative); Coronavirus 19 IgM Antibody Negative (Negative)
== END ==
PROVIDERS: Visit Provider Nurse Practitioner Obstetrics & Gynecology
DX: Z01.818 Encounter for other preprocedural examination (principal); O02.1 Missed abortion
CPT/HCPCS: 36415; 80048; 85025; 86328

== ENCOUNTER 2020-01-15 13:31 | Day surgery (SDC) | payer OTHER, SELFPAY ==
[2020-01-15] VITALS (12 sets, daily range): BP systolic 113–149; BP diastolic 66–91; PULSE 89–105; RESP 13–19; TEMP 36.6–37.2; O2SAT 97–100
--- NOTE | 2020-01-15 14:28 | P.PN_ITS ---
[facility] Anesthesia Record Part I Intake, IV Amount: 400 Estimated blood loss (mL): 200 Urine output (mL): 0 Blood Pressure: 120/66 SaO2: 98 Pulse Rate: 105 Respiratory Rate: 16 Temperature: 99 F Patient is:: Drowsy, Stable Stable to PACU at:: 14:25
--- NOTE | 2020-01-15 14:28 | P.PN_ITS ---
[facility] Anesthesia Checklist - Patient Identification Patient Identification: Arm Band - Structural Data Admitted From: Home Planned Operative Procedure/s: D&E Consent for Planned Operative Procedure(s) Verified: Yes Verified Documents: Surgical Consent, History and Physical - NPO Status Verified Time NPO: 00:00 - Additional verifications Anesthesia Reactions: No Hx Blood Transfusions: No Blood Transfusion Reaction: No - Airway Assessment C-Spine Mobility Assessed: Yes (mp2) TMJ Mobility Assessed: Yes Dentition: Good Dentition - Neurological Assessment Level of Consciousness: Awake, Alert - Anesthesia Plan Anesthesia Risk discussed: Yes Anesthesia Plan: Verified ASA Class: I Anesthesia Type: General [facility] History I have reviewed the patient's past medical history: Yes Medical History: Denies:: Cancer, Diabetes Mellitus Type 1, Diabetes Mellitus Type 2, Internal Pacemaker, MRSA, Seizures *Have you ever received a pneumonia vaccine?: No *Have you received a flu vaccine this season?: Yes Other Medical History: Denies: Blood Transfusion Reaction Anesthesia experience/problems:: nac Other Surgeries: Yes: . No: Pacemaker Amputation: No Fractures: No - *Social History Smoking Status: Never smoker Alcohol Intake: never Alcohol Intake Frequency:: holidays/special occasions only Substance Use Type: denies use *Occupational Status:: employed Housing: house Household Members: significant other *Travel in the last 8 weeks: None Family Hx:: Hypertension
--- NOTE | 2020-01-15 14:52 | HMH.OPNOTE ---
Date of procedure: 01/15/20 Pre-op Diagnosis:: Missed Post-op Diagnosis:: Missed Procedure performed:: Dilation and evacuation with Oktibbeha suction Surgeon:: Mickey Barragan MD LOADING UNIT OPERATOR:: Torrey Allen Anesthesia: LMA Estimated blood loss (mL): 200 Clinical Note:: She is a 29-year-old 3 para 2 who was approximately 10 weeks gestational age. She was seen in my office with some bleeding last week and there was a nonviable fetus. She also had an ultrasound that confirmed this in the radiology department. We did an ultrasound yesterday and she had a significant mount of retained products and the endometrial cavity was also full of clots. The cavity was approximately 4 cm in size. As result of that we offered her dilation and evacuation with Ole suction since she had not passed the fetus or tissue. Operative findings:: She had an anteverted bulky uterus. Operative note:: She was taken the operating room where LMA anesthesia was found to be adequate. She was prepped and draped in normal sterile fashion in the lithotomy position. Weighted speculum was placed in vagina and the anterior lip of the cervix was grasped with a tenaculum. We then dilated the cervix to approximately 10 mm. Then using a 10 mm curved Oktibbeha suction curette evacuated the uterine contents. This was followed by a gentle curettage. There was a small tear on the cervix that I placed a [id number] suture in. She tolerated the procedure well and was taken to the recovery room in excellent condition. All sponge, instrument and needle counts were correct. The estimated blood loss was approximately 200 cc. Condition: stable Disposition: PACU Specimens:: Products of conception Complications:: None
--- NOTE | 2020-01-15 18:12 | P.PN_ITS ---
[facility] Anesthesia Record Part II Discharge Time: 14:55 Destination: Surgical Day Care (OP Surgery) PACU nurse assessment reviewed?: Yes Patient Condition:: Good Anesthesia Complications:: None Swallowing reflex intact?: Yes Cyanosis?: No Blood Pressure: 124/75 Pulse Rate: 89 Temperature: 98.2 F Mental Status: Alert & Oriented Pain level:: 0 Nausea and/or vomitting:: None Intake, IV Amount: 0
== END 2020-01-15 15:33 | disposition home or self-care (01) ==
LOC: OR 13:32
PROVIDERS: Visit Provider Nurse Practitioner Obstetrics & Gynecology
PROC: (CPT 59820; principal; 2020-01-15 14:00)
DX: O02.1 Missed abortion (principal); N85.4 Malposition of uterus
CPT/HCPCS: 59820; 96374; J2405

== ENCOUNTER → 2020-05-07 10:58 | Outpatient (CLI) | payer OTHER, SELFPAY ==
[2020-05-07 12:07] LABS: HCG,Quantitative 263 mIU/ml (0-5.42)
== END ==
PROVIDERS: Visit Provider Nurse Practitioner Obstetrics & Gynecology
DX: N92.6 Irregular menstruation, unspecified (principal)
CPT/HCPCS: 36415; 84702

== ENCOUNTER → 2020-05-12 07:19 | Outpatient (CLI) | payer OTHER, SELFPAY ==
[2020-05-12 08:59] LABS: HCG,Quantitative 2098 mIU/ml (0-5.42)
== END ==
PROVIDERS: Visit Provider Nurse Practitioner Obstetrics & Gynecology
DX: Z32.00 Encounter for pregnancy test, result unknown (principal)
CPT/HCPCS: 36415; 84702

== ENCOUNTER → 2020-05-15 10:43 | Outpatient (CLI) | payer OTHER, SELFPAY ==
[2020-05-15 11:00] LABS: Basophils % 0.5 % (0.1-2.0); Eosinophils % 0.4 % (0.1-12.0); Hematocrit 41.4 % (37.0-47.0); Hemoglobin 14.5 g/dL (12.2-16.2); Lymphocytes # 1.7 K/mm3 (0.7-4.5); Lymphocytes % 20.2 % (10-50); Mean Corpuscular HGB Conc 34.9 g/dL (31.8-35.4); Mean Corpuscular Hemoglobin 31.7 pg (27.0-31.2); Mean Corpuscular Volume 90.9 fl (81-99); Mean Platelet Volume 8.5 fl (7.4-10.4); Monocytes # 0.3 K/mm3 (0.1-1.0); Monocytes % 4.1 % (1.7-9.3); Neutrophils # 6.2 K/mm3 (1.8-7.8); Neutrophils % 74.8 % (37.0-80.0); Platelet Count 209 K/mm3 (142-424); Red Blood Count 4.56 M/mm3 (4.20-5.40); Red Cell Distribution Width 12.2 % (11.5-17.5); White Blood Count 8.3 K/mm3 (4.8-10.8)
[2020-05-15 11:30] LABS: Chloride 105 mmol/L (98-107); Sodium 137 mmol/L (136-145)
[2020-05-15 11:31] LABS: Potassium 4.3 mmoL/L (3.5-5.1)
[2020-05-15 11:33] LABS: Alanine Aminotransferase 19 U/L (12-78); Albumin Level 4.5 g/dl (3.5-5.0); Albumin/Globulin Ratio 1.6 (1.1-1.8); Alkaline Phosphatase 46 U/L (38-126); Anion Gap 13.3 mEq/L (5-15); Aspartate Amino Transferase 27 U/L (14-36); Bilirubin,Total 0.6 mg/dl (0.2-1.3); Blood Urea Nitrogen 13 mg/dl (7-17); Carbon Dioxide 23 mmol/L (22.0-30.0); Estimated Glomerular Filt Rate 118 ml/min (>60); GFR (African American) 143 ML/MIN (>60); Globulin 2.9 g/dL (1.3-3.2); Total Protein,Serum 7.4 g/dl (6.3-8.2)
[2020-05-15 11:34] LABS: Calcium 9.4 mg/dl (8.4-10.2); Glucose 103 mg/dl (74-100)
[2020-05-15 11:50] LABS: HCG,Quantitative 8221 mIU/ml (0-5.42)
== END ==
PROVIDERS: Visit Provider Obstetrics & Gynecology
DX: Z34.90 Encounter for supervision of normal pregnancy, unspecified, unspecified trimester (principal)
CPT/HCPCS: 36415; 80053; 84702; 85025

== ENCOUNTER → 2020-05-28 14:23 | Outpatient (CLI) | payer OTHER, SELFPAY ==
--- NOTE | 2020-05-28 14:23 | US_ITS ---
PROCEDURE: US OB <= 14 WEEKS FETUS CLINICAL INDICATION: Early Ob ultrasound COMPARISON: US OBBIOCOMP US OB BPP w/Fet-Mat S/D from 07/10/2018 FINDINGS: An intrauterine gestational sac is present with a pole with a crown-rump length of 0.82cm correlating to gestational age of 6weeks 6days. heart tones are present with an FHR of 151bpm. Yolk sac is noted. The uterus is retroverted. IMPRESSION: Live IUP at 6 weeks 6 days within a retroverted uterus Estimated due date by Ultrasound is 01/15/2021 Dictated by: Yunior Montiel MD 05/28/2020 17:43 Yunior Montiel MD in OV 05/28/2020 17:43
== END ==
PROVIDERS: PCP Nurse Practitioner Obstetrics & Gynecology; Visit Provider Obstetrics & Gynecology
DX: Z34.90 Encounter for supervision of normal pregnancy, unspecified, unspecified trimester (principal)
CPT/HCPCS: 76801

== ENCOUNTER → 2020-06-06 07:48 | Outpatient (CLI) | payer OTHER, SELFPAY ==
[2020-06-06 08:37] LABS: Basophils % 0.5 % (0.1-2.0); Eosinophils # 0.1 K/mm3 (0.0-0.4); Eosinophils % 0.8 % (0.1-12.0); Hematocrit 37.5 % (37.0-47.0); Hemoglobin 13.1 g/dL (12.2-16.2); Lymphocytes # 1.5 K/mm3 (0.7-4.5); Lymphocytes % 20.9 % (10-50); Mean Corpuscular HGB Conc 34.9 g/dL (31.8-35.4); Mean Corpuscular Hemoglobin 31.9 pg (27.0-31.2); Mean Corpuscular Volume 91.5 fl (81-99); Mean Platelet Volume 8.2 fl (7.4-10.4); Monocytes # 0.3 K/mm3 (0.1-1.0); Monocytes % 4.4 % (1.7-9.3); Neutrophils # 5.2 K/mm3 (1.8-7.8); Neutrophils % 73.4 % (37.0-80.0); Platelet Count 191 K/mm3 (142-424); White Blood Count 7.1 K/mm3 (4.8-10.8)
[2020-06-07 08:28] LABS: HIV Screen 4th Generation wRfx Non Reactive (Non Reactive)
[2020-06-07 12:24] LABS: Hepatitis B Surface Antigen Negative (Negative); Hepatitis C Antibody <0.1 s/co ratio (0.0-0.9); Rapid Plasma Reagin Ab Titer Non Reactive (NonRea<1:1); Rubella Antibodies, IgG 1.21 index (Immune >0.99)
== END ==
PROVIDERS: Visit Provider Nurse Practitioner Obstetrics & Gynecology
DX: Z34.90 Encounter for supervision of normal pregnancy, unspecified, unspecified trimester (principal)
CPT/HCPCS: 36415; 85025; 86592; 86703; 86762; 86850; 87340; 87380; G0432

== ENCOUNTER → 2020-08-27 14:48 | Outpatient (CLI) | payer OTHER, SELFPAY ==
--- NOTE | 2020-08-27 14:48 | US_ITS ---
PROCEDURE: US OB /MATERNAL DETAIL CLINICAL INDICATION: 20 weeks gestation Anatomy Cephalic Placenta anterior Cervix, fluid and anatomy normal COMPARISON: US US OB <= 14 WEEKS FETUS from 05/28/2020 FINDINGS: There is a single live intrauterine gestation present which is in cephalic presentation. The cervix is closed measuring 4 cm. The placenta is anterior and grade 1. Complete survey performed and was unremarkable on the submitted images as in PACS. No discrete anomalies identified on survey imaging by technologist. Active fetus. Three-vessel cord with satisfactory umbilical cord insertion. 4- chamber heart noted. Survey of brain & ventricles Unremarkable. Face and neck survey unremarkable. Diaphragm and chest views unremarkable. Abdomen: Both kidneys noted and unremarkable. Stomach noted and satisfactory. Spine: Survey of the spine satisfactory with no anomalies identified nor imaged. Both arms and legs noted. Amniotic Fluid: Adequate. Maternal adnexa: No significant findings. Measurements: Average ultrasound age 20weeks 3days. Gestational Age 19weeks 6days Estimated due date by ultrasound age 1101/11/2021. Estimated weight 341g BPD = 20weeks 6days OFD = 20weeks 3days HC = 19weeks 6days AC = 20weeks 6days FL = 19weeks 6days Growth Percentile= 68Percent% Heart Rate = Cerebellum = 20weeks Humerus = HC/AC is 1.1 CI is 0.81 FL/BPD is 0.64 FL/AC is 0.2 IMPRESSION: Live IUP with an average ultrasound age of 20 weeks and 3 days. All parameters correlate with no obvious anomalies. Please see above for detail. Dictated by: Yunior Montiel MD 08/28/2020 07:44 Yunior Montiel MD in OV 08/28/2020 07:44
== END ==
PROVIDERS: Visit Provider Nurse Practitioner Obstetrics & Gynecology
DX: Z34.92 Encounter for supervision of normal pregnancy, unspecified, second trimester (principal); Z3A.20 20 weeks gestation of pregnancy
CPT/HCPCS: 76811

== ENCOUNTER → 2020-12-18 14:10 | Outpatient (CLI) | payer OTHER, SELFPAY | PROVIDERS: Visit Provider Nurse Practitioner Obstetrics & Gynecology | DX: Z34.90 Encounter for supervision of normal pregnancy, unspecified, unspecified trimester (principal) | CPT/HCPCS: 86403 ==

== ENCOUNTER → 2021-01-06 10:40 | Outpatient (CLI) | payer OTHER, SELFPAY ==
[2021-01-06 11:13] LABS: Basophils % 0.4 % (0.1-2.0); Eosinophils % 0.3 % (0.1-12.0); Hematocrit 37.8 % (37.0-47.0); Hemoglobin 13.2 g/dL (12.2-16.2); Lymphocytes # 1.4 K/mm3 (0.7-4.5); Lymphocytes % 18.7 % (10-50); Mean Corpuscular HGB Conc 34.8 g/dL (31.8-35.4); Mean Corpuscular Volume 94.7 fl (81-99); Mean Platelet Volume 9.1 fl (7.4-10.4); Monocytes # 0.3 K/mm3 (0.1-1.0); Monocytes % 3.4 % (1.7-9.3); Neutrophils # 5.7 K/mm3 (1.8-7.8); Neutrophils % 77.2 % (37.0-80.0); Platelet Count 189 K/mm3 (142-424); Red Blood Count 3.99 M/mm3 (4.20-5.40); Red Cell Distribution Width 14.1 % (11.5-17.5); White Blood Count 7.4 K/mm3 (4.8-10.8)
[2021-01-06 11:49] LABS: Anion Gap 10.3 mEq/L (5-15); Blood Urea Nitrogen 10 mg/dl (7-17); Calcium 8.7 mg/dl (8.4-10.2); Carbon Dioxide 23 mmol/L (22.0-30.0); Chloride 104 mmol/L (98-107); Estimated Glomerular Filt Rate 146 ml/min (>60); GFR (African American) 177 ML/MIN (>60); Glucose 130 mg/dl (74-100); Potassium 4.3 mmoL/L (3.5-5.1); Sodium 133 mmol/L (136-145)
== END ==
PROVIDERS: Visit Provider Nurse Practitioner Obstetrics & Gynecology
DX: Z01.818 Encounter for other preprocedural examination (principal); Z34.90 Encounter for supervision of normal pregnancy, unspecified, unspecified trimester
CPT/HCPCS: 36415; 80048; 85025; C9803; U0003; U0005

== ENCOUNTER 2021-01-08 05:12 | Inpatient (IN) | payer OTHER, SELFPAY ==
[2021-01-08] VITALS (8 sets, daily range): BP systolic 111–134; BP diastolic 63–92; PULSE 81–105; RESP 12–18; TEMP 36.3–37.1; O2SAT 98–100; BMI 35.6; BMI 37.8
[2021-01-08 06:00] LABS: Microscopic, Urine URINE MICROSCOPIC (MICROSCOPIC)
[2021-01-08 06:00] LABS: Coronavirus 19, PCR Not Detected (NotDetected); Influenza A, PCR Not Detected (NotDetected); Influenza B, PCR Not Detected (NotDetected)
[2021-01-08 06:04] LABS: Basophils # 0.1 K/mm3 (0-0.2); Basophils % 0.7 % (0.1-2.0); Eosinophils % 0.5 % (0.1-12.0); Hematocrit 36.2 % (37.0-47.0); Hemoglobin 12.5 g/dL (12.2-16.2); Lymphocytes # 1.7 K/mm3 (0.7-4.5); Lymphocytes % 21.4 % (10-50); Mean Corpuscular HGB Conc 34.5 g/dL (31.8-35.4); Mean Corpuscular Hemoglobin 32.7 pg (27.0-31.2); Mean Platelet Volume 9.7 fl (7.4-10.4); Monocytes # 0.4 K/mm3 (0.1-1.0); Monocytes % 4.8 % (1.7-9.3); Neutrophils # 5.7 K/mm3 (1.8-7.8); Neutrophils % 72.5 % (37.0-80.0); Platelet Count 183 K/mm3 (142-424); Red Blood Count 3.82 M/mm3 (4.20-5.40); Red Cell Distribution Width 14.2 % (11.5-17.5); White Blood Count 7.9 K/mm3 (4.8-10.8)
[2021-01-08 06:16] LABS: Appearance,Urine CLEAR (Clear); Bilirubin,Urine Negative (Negative); Blood, Urine TRACE-I (Negative); Color,Urine YELLOW (Yellow); Glucose,Urine (UA) Negative (Negative); Ketones,Urine Negative (Negative); Leukocyte Esterase,Urine 3+ (Negative); Nitrate,Urine Negative (Negative); Protein,Urine Negative (Negative); Specific Gravity, Urine 1.015 (1.005-1.030); Urobilinogen,Urine 0.2 EU/dl (0.2)
[2021-01-08 06:28] LABS: Bacteria,Urine 1+ /lpf
--- NOTE | 2021-01-08 07:11 | P.PN_ITS ---
[facility] Anesthesia Checklist - Patient Identification Patient Identification: Arm Band, Verbal (Name & ) - Structural Data Admitted From: Home Planned Operative Procedure/s: Consent for Planned Operative Procedure(s) Verified: Yes Verified Documents: Surgical Consent - NPO Status Verified Time NPO: 00:00 - Chart Verification Results Verified: CBC, BMP - Additional verifications Anesthesia Reactions: No Hx Blood Transfusions: No Blood Transfusion Reaction: No - Cardiovascular Assessment Heart Sounds: S1 & S2 - Airway Assessment C-Spine Mobility Assessed: Yes TMJ Mobility Assessed: Yes Dentition: Good Dentition - Neurological Assessment Level of Consciousness: Awake, Alert, Appropriate - Anesthesia Plan ASA Class: II Anesthesia Type: Spinal [facility] History I have reviewed the patient's past medical history: Yes Medical History: Denies:: Cancer, Diabetes Mellitus Type 1, Diabetes Mellitus Type 2, Internal Pacemaker, MRSA, Seizures *Have you ever received a pneumonia vaccine?: No *Have you received a flu vaccine this season?: Yes Other Medical History: Denies: Blood Transfusion Reaction Anesthesia experience/problems:: none Other Surgeries: Yes: No Previous Surgery, , Dilation and Curettage. 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
--- NOTE | 2021-01-08 07:25 | HMH.OBAPHP ---
OB - H&P: HPI Antepartum - History of Present Illness Chief complaint: Term , previous section History of present illness: She is a 30-year-old 2 para 1 at 39 weeks gestational age. She has had a previous section and as result of that is offered repeat lower segment transverse section at term. [facility] History I have reviewed the patient's past medical history: Yes Medical History: Denies:: Cancer, Diabetes Mellitus Type 1, Diabetes Mellitus Type 2, Internal Pacemaker, MRSA, Seizures *Have you ever received a pneumonia vaccine?: No *Have you received a flu vaccine this season?: Yes Other Medical History: Denies: Blood Transfusion Reaction Anesthesia experience/problems:: none Other Surgeries: Yes: No Previous Surgery, , Dilation and Curettage. 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: 1 Review of Systems - Review of Systems Review of systems:: pertinent systems reviewed and negative unless documented below Meds Home Medications Medication Instructions Recorded Confirmed Type Docosahexaenoic Acid [ Dha] 200 mg PO DAILY 01/15/20 01/01/21 History folic acid 800 mcg tablet 0.8 mg PO DAILY 01/29/20 01/01/21 History labetalol 200 mg tablet See Rx Instructions .ROUTE 08/28/20 01/01/21 Rx .COMPLEX #60 tab polysaccharide iron complex 180 mg 180 mg PO BID #60 cap 11/04/20 01/01/21 Rx iron capsule Allergies Allergy/AdvReac Type Severity Reaction Status Date / Time No Known Allergies Allergy Verified 01/01/21 08:55 OB - H&P: Exam - Physical Exam Vital signs: Temp Pulse Resp BP Pulse Ox 98.6 F 95 H 18 134/92 H 99 01/08/21 05:53 01/08/21 05:53 01/08/21 05:53 01/08/21 05:53 01/08/21 05:53 - Constitutional no acute distress - Routine HEENT Exam Head: Present: normocephalic Eye: Present: EOMI, PERRL ENT: Present: mucous membranes moist - Routine Neck Exam Present: supple, full ROM - Routine Respiratory Exam Absent: accessory muscle use (good air entry bilaterally), respiratory distress, wheezes, crackles - Routine Cardiovascular Exam Present: RRR. Absent: murmur - Routine Abdominal Exam Present: soft, normoactive bowel sounds. Absent: tenderness, distended, guarding - Routine Rectal Exam Patient deferred: visual exam, digital exam - Routine Exam Patient deferred: external exam, groin exam, perineal exam - Routine Extremities Exam Present: full ROM. Absent: cyanosis, edema - Routine Skin Exam Present: intact. Absent: cyanosis - Routine Neurological Exam Present: alert, oriented X3 - Routine Psychiatric Exam Present: normal affect OB - Results - Labs Labs: Short CBC 01/08/21 Range/Units 05:43 WBC 7.9 (4.8-10.8) K/mm3 Hgb 12.5 (12.2-16.2) g/dL Hct 36.2 L (37.0-47.0) % Plt Count 183 (142-424) K/mm3 Urine 01/08/21 Range/Units 05:43 Urine Color Yellow (Yellow) Urine Appearance Clear (Clear) Urine pH 7.0 (5.0-8.5) Ur Specific [place] 1.015 (1.005-1.030) Urine Protein Negative (Negative) Urine Glucose (UA) Negative (Negative) OB - A/P Antepartum (1) Previous section complicating Status: Acute (2) Delivery by section of full-term Status: Acute - Additional Plan Planning to breastfeed?: Yes Plan: other Additional Information:: She is here for repeat lower segment transverse section.
--- NOTE | 2021-01-08 08:29 | HMH.OPNOTE ---
Date of procedure: 01/08/21 Pre-op Diagnosis:: Term , previous section Post-op Diagnosis:: Term , previous section, uterine atony Procedure performed:: Repeat lower segment transverse section, B-Peres suture Surgeon:: Mickey Barragan MD Archeology Faculty Member(s):: Flower Leo HOTEL NIGHT AUDITOR:: Other (Rishabh Ernst) Anesthesia: spinal Estimated blood loss (mL): 600 Clinical Note:: She is a 30-year-old 3 para 1 aborta 1 who was 39 weeks gestational age. She is had a previous section and as result of that was offered repeat lower segment transverse section at term. Operative findings:: She delivered a liveborn male child at 7:49 AM on the morning of January 08, 2021. Baby had Apgars of 9 at 1 minute and 9 at 5 minutes. He had a loose nuchal cord. The uterus was somewhat boggy after we had finished closing the uterus and as result of that we elected to place a B-Peres suture. Operative note:: She was taken to the operating room where spinal anesthesia was found be adequate. She was prepped and draped in normal sterile fashion in the supine position with a leftward tilt. A Valdez catheter was in the bladder. A Pfannenstiel skin incision was made with knife then carried through to the underlying layer of fascia with cautery. The fascia was opened in the midline with cautery and extended laterally using Lynn scissors. Alden clamps were applied to the superior aspect of the fascial incision which was tented up and the underlying rectus muscles dissected off using cautery. The Anish clamps were then applied to the inferior aspect of the fascial incision which in a similar fashion was tented up and the underlying rectus muscles dissected off using cautery. The rectus muscles were then in the midline, the peritoneum identified, and entered sharply with Metzenbaum scissors. This incision was then extended superiorly and inferiorly with cautery. We had good visualization of the bladder inferiorly. The bladder peritoneum was then opened in the midline and extended laterally using Metzenbaum scissors. A bladder flap was created digitally. Transverse incision was made through the uterine muscle to the amnion. This incision was then extended laterally using fingers traction. The amnion was entered sharply with knife. There was clear amniotic fluid. The infant's head was then delivered atraumatically. A loose nuchal cord was then reduced. This was followed by the anterior shoulder and the rest of the infant's body atraumatically. The oropharynx and nasopharynx were bulb suctioned. The infant was vigorous and crying so we the cord to continue to pulsate for approximately 1 minute. The infant was then handed off to Dr. Valdez who assigned Apgars of 9 at 1 minute and 9 at 5 minutes. We then obtained cord blood. Using gentle traction on the cord and countertraction on the fundus I was able to easily deliver the placenta intact. It had a normal three-vessel cord. The uterus was then cleared of clots and debris . The uterine incision was then closed using running 0 Vicryl suture in a locked fashion. A second layer of the same suture was used to imbricate the first layer. There was some bleeding along the medial aspect of the incision and I used interrupted [id number] 0 Vicryl sutures here to obtain excellent hemostasis. The bladder peritoneum was then closed using running 2-0 Vicryl suture in a locked fashion. The gutters and cul-de-sac were then cleared of clots and debris . We then elected to place a B. Peres suture because the uterus was somewhat boggy. Using #1 Vicryl suture on a protective point needle I took a bite of tissue anteriorly and then went over the top of the uterus and took 2 bites posteriorly. I then came back over to the anterior aspect of the uterus and took another bite of the uterine muscle. This was then cinched down and tied. Once again hemostasis was assured. The uterus
--- NOTE | 2021-01-08 08:37 | HMH.ANESI ---
[facility] Anesthesia Record Part I Intake, IV Amount: 800 Estimated blood loss (mL): 600 Urine output (mL): 600 Blood Products used (#): none Blood Pressure: 128/74 SaO2: 100 Pulse Rate: 97 Respiratory Rate: 18 Temperature: 98.8 F Patient is:: Awake Stable to PACU at:: 08:32
--- NOTE | 2021-01-08 13:36 | HMH.PHAVTE ---
[facility] Pharm[facility] VTE Monitoring - Patient Demographics Admission date: 01/08/21 Report Date: 01/08/21 Time: 13:36 Allergies/Adverse Reactions: Patient Allergies No Known Allergies Allergy (Verified 01/01/21 08:55) Height: 1.63 m Weight: 99.79 kg Patient Problems: Current Active Problems Previous section complicating (Acute) Delivery by section of full-term (Acute) - VTE Risk Labs: VTE Related Lab Results Hgb 12.5 g/dL (12.2-16.2) 01/08/21 05:43 Hct 36.2 % (37.0-47.0) L 01/08/21 05:43 Plt Count 183 K/mm3 (142-424) 01/08/21 05:43 - Prophylaxis VTE Prophylaxis Ordered?: Yes Types of VTE Prophylaxis: IPCS Thigh High Location of Applied Device: Bilateral Lower Extremeties
[2021-01-09 04:45] VITALS: BP 124/65; PULSE 110; RESP 18; TEMP 36.9; O2SAT 99
[2021-01-09 06:43] LABS: Hematocrit 27.2 % (37.0-47.0); Hemoglobin 9.4 g/dL (12.2-16.2)
--- NOTE | 2021-01-09 12:32 | HMH.ACPN2 ---
Internal Medicine - PN: Subj *Date: 01/09/21 *Time: 12:32 Interval history: She is doing very well this morning. She is eating and drinking and ambulating. She is breast-feeding. Her lochia is normal. Exam Vital signs and Labs for Last 24 Hours: Temp Pulse Resp BP Pulse Ox 98.4 F 110 H 18 124/65 99 01/09/21 04:45 01/09/21 04:45 01/09/21 04:45 01/09/21 04:45 01/09/21 04:45 Laboratory Results - last 24 hr 01/09/21 06:27: Hgb 9.4 L, Hct 27.2 L I & O for Last 24 hours: Intake & Output 01/07/21 01/08/21 01/09/21 01/10/21 11:59 11:59 11:59 11:59 Intake Total 800 / 800 Output Total 300 / 300 Balance 500 / 500 Weight 220 lb Microbiology Reports for the Last 24 Hours: Microbiology 01/08/21 05:43 Urine,Clean Catch Urine Culture - Preliminary NO GROWTH AFTER 24 HOURS - Constitutional no acute distress - *Routine HEENT Exam Head: Present: normocephalic Eye: Present: EOMI, PERRL ENT: Present: mucous membranes moist Assessment and Plan (1) Previous section complicating Status: Acute Category: Surgical Code(s): O34.219 - Maternal care for unspecified type scar from previous delivery (2) Delivery by section of full-term Status: Acute Category: Medical Code(s): O82 - Encounter for delivery without indication - Assessment and plan all Dx Assessment and Plan for all problems:: She is doing well this morning. We will plan to send her home tomorrow. Her pain is well controlled with the tap block.
[2021-01-09 21:24] VITALS: BP 129/75; PULSE 117; RESP 18; TEMP 36.8; O2SAT 97
[2021-01-10 04:37] VITALS: BP 131/74; PULSE 102; RESP 18; TEMP 36.8; O2SAT 100
[2021-01-10 08:30] VITALS: BP 118/81; PULSE 105; RESP 20; TEMP 36.7; O2SAT 100
--- NOTE | 2021-01-10 10:03 | [facility].OBDCSM ---
General - General Admission date:: 01/08/21 Discharge date: 01/10/21 HPI - History of Present Illness History of present illness: She is a 30-year-old 3 para 1 aborta 1 who is 39 weeks gestational age. She has had a previous section and was brought in for repeat lower segment transverse section at term. Hospital Course Hospital Course: On January 08, 2021 she underwent a repeat lower segment transverse section. She delivered a liveborn male child. The baby weighed 8 pounds 12 ounces and was 20 inches long. He had Apgars of 9 at 1 minute and 9 at 5 minutes. She has done well and has remained afebrile throughout her hospitalization. She did have a B. Peres suture at the time of her surgery and a tap block. Her pain is well controlled. She has a positive blood, she is rubella immune and was group B streptococcus negative. Her superior court justice is Dr. Camacho. She is discharged home to follow-up with me in approximately 2 weeks time. She will continue with her vitamins and iron. She was given the usual instructions with respect to limiting her activity, driving and sexual activity. She is breast-feeding. Rhogam Administration: Not Indicated Objective Vital signs: Temp Pulse Resp BP Pulse Ox 98.3 F 102 H 18 131/74 100 01/10/21 04:37 01/10/21 04:37 01/10/21 04:37 01/10/21 04:37 01/10/21 04:37 no acute distress - *Routine HEENT Exam Head: Present: normocephalic Eye: Present: EOMI, PERRL ENT: Present: mucous membranes moist Results Labs on day of discharge: Preliminary micro results at discharge 01/08/21 07:30 Urine Culture - Preliminary Urine,Catheterized NO GROWTH AFTER 24 HOURS DS: Diagnosis - Discharge Diagnosis (1) Previous section complicating Status: Acute (2) Delivery by section of full-term Status: Acute Discharge Plan - Patient Discharge Instructions ACTIVITY: No heavy lifting DIET: continue same diet Additional Instructions: *Nothing in the vagina for 6 Weeks* *No strenuous activity* *Don't lift anything heavier than your baby* *Don't drive while taking pain medication* Patient Instructions: Depression, Hemorrhage, DI for , DI for Pre-eclampsia, [facility] Post Discharge Instructions, Preventing the Spread of Coronavirus Discharge Instructions - Follow up Plan Follow up with: Mickey Barragan MD [Staff Physician] - 01/22/21 11:00 am Disposition: Home, Self-Care Condition at discharge:: Stable Home Medications: Home Medications Medication Instructions Recorded Confirmed Type Docosahexaenoic Acid [ Dha] 200 mg PO DAILY 01/15/20 01/08/21 History folic acid 800 mcg tablet 0.8 mg PO DAILY 01/29/20 01/08/21 History Iron Polysaccharide Complex [Pro 180 mg PO BID 01/08/21 01/08/21 History Fe] Oxycodone HCl/Acetaminophen 1 tab PO Q4-6H PRN #20 tablet 01/10/21 Rx [Percocet 5/325mg tablet] Prescriptions/Medication Reconciliation: New Oxycodone HCl/Acetaminophen [Percocet 5/325mg tablet] 1 tab PO Q4-6H PRN #20 tablet PRN Reason: Severe Pain Continued folic acid 800 mcg tablet 0.8 mg PO DAILY Iron Polysaccharide Complex [Pro Fe] 180 mg PO BID Docosahexaenoic Acid [ Dha] 200 mg PO DAILY - Problem Reconciliation Problems Reviewed?: Yes
== END 2021-01-10 11:10 | disposition home or self-care (01) | DRG 788 ==
PROVIDERS: Admitting Provider Nurse Practitioner Obstetrics & Gynecology; Visit Provider Nurse Practitioner Obstetrics & Gynecology
PROC: 10D00Z1 Extraction of Products of Conception, Low, Open Approach (ICD-10-PCS; CPT 59514; principal; 2021-01-08 07:30)
DX: O34.211 Maternal care for low transverse scar from previous cesarean delivery (principal); N85.8 Other specified noninflammatory disorders of uterus; Z3A.39 39 weeks gestation of pregnancy; Z37.0 Single live birth; O75.89 Other specified complications of labor and delivery; O69.81X0 Labor and delivery complicated by cord around neck, without compression, not applicable or unspecified
CPT/HCPCS: 59514; 59025; 81001; 85014; 85018; 85025; 86850; 87086; 94761; C9803; G0283; J2405; U0003; U0005